=== PATIENT | male | born 1950 | race Caucasian/White ===

== ENCOUNTER 2018-11-04 14:47 | Day surgery (SDC) | payer MEDICARE ==
[2018-11-04] MEDS ORDERED: Glucagon,Human Recombinant 1 MG Vial IVPUSH ONE (14:49)
--- NOTE | 2018-11-04 14:49 | EDM.PDOC ---
ED HPI GENERAL MEDICAL PROBLEM - General Chief Complaint: ENT Problem Stated Complaint: DIFFICULTY SWALLOWING Time Seen by Provider: 11/04/18 14:48 Source of Information: Reports: Patient History Limitations: Reports: No Limitations - History of Present Illness INITIAL COMMENTS - FREE TEXT/NARRATIVE: HISTORY AND PHYSICAL: History of present illness: Patient is a 68-year-old male who presents to the emergency room today with complaints of an esophageal food bolus. He states that he has had a long- standing history of getting food stuck, typically with meat. He states he has had this multiple times previous but within 15-20 minutes his "sphincter will relax" and he is able to swallow the food. States he has not ever needed to have an EGD or dilatation as it has resolved on its own. This occurrence happened last evening while eating some dry steak. Has tried nitroglycerin pills (to relax esophagus/ not for chest pain) and soda without any relief. He denies any fever, chills, chest pain, shortness of breath or dyspnea. He denies any abdominal pain, nausea, vomiting, diarrhea or constipation. Prior to this he had felt well and had no complaints. Currently he has no difficulty breathing but is unable to swallow his saliva. He has a cup at the bedside that he is spitting into Review of systems: As per history of present illness and below otherwise all systems reviewed and negative. Past medical history: As per history of present illness and as reviewed below otherwise noncontributory. Surgical history: As per history of present illness and as reviewed below otherwise noncontributory. Social history: See social history for further information Family history: As per history of present illness and as reviewed below otherwise noncontributory. Physical exam: General: Well-developed and well-nourished 68 year-old male. Alert and oriented. Nontoxic appearing and in no acute distress. HEENT: Atraumatic, normocephalic, pupils equal and reactive bilaterally, negative for conjunctival pallor or scleral icterus, mucous membranes moist, TMs normal bilaterally, throat clear, neck supple, nontender, trachea midline. No drooling or trismus noted. No meningeal signs. No hot potato voice noted. Lungs: Clear to auscultation, breath sounds equal bilaterally, chest nontender. Heart: S1S2, regular rate and rhythm without overt murmur Abdomen: Soft, nondistended, nontender. Negative for masses or hepatosplenomegaly. Negative for costovertebral tenderness. Pelvis: Stable nontender. Genitourinary: Deferred. Rectal: Deferred. Skin: Intact, warm, dry. No lesions or rashes noted. Extremities: Atraumatic, moves all per self, negative for cords or calf pain. Neurovascular unremarkable. Neuro: Awake, alert, oriented. Cranial nerves II through XII unremarkable. Cerebellum unremarkable. Motor and sensory unremarkable throughout. Exam nonfocal. Notes: Glucagon IV was attempted with out success. Failed PO challenge. Dr. Ziegler was consulted on this patient. 1550: Dr Ziegler here to see patient. She will take this patient to OR for an EGD. Surgery staff and anesthesia here to see patient.. Patient is aware and agreeable to plan of care. Vital signs remain stable. Diagnostics: CBC, CMP, Chest Xray Therapeutics: Glucogon IV Impression: Esophageal foreign body Plan: Patient to the OR with Dr Ziegler for EGD Definitive disposition and diagnosis as appropriate pending reevaluation and review of above. - Related Data Allergies Allergy/AdvReac Type Severity Reaction Status Date / Time No Known Allergies Allergy Verified 11/04/18 14:57 Home Meds: Home Meds Fish Oil/[place]-3 Fatty Acids [Fish Oil] 2 tbsp PO DAILY 11/04/18 [History] Pantoprazole [ProTONIX] 40 mg PO DAILY #30 tab.cr 11/04/18 [Rx] ED ROS ENT - Review of Systems Review Of Systems: ROS reveals no pertinent complaints other than HPI. ED EXAM, ENT - Physical Exam Exam: See Below (See dictation) Course - Vital Signs Last Recorded V/S: Last Vital Signs Temp 98.4 F 11/04/18 18:43 Pulse 60 11/04/18 19:47 Resp 20 11/04/18 19:47 BP 146/86 H 11/04/18 19:47 Pulse Ox 97 11/04/18 19:14 - Orders/Labs/Meds Orders: Active Orders 24 hr Category Date Time Status Patient Status [ADT] Routine ADT 11/04/18 18:45 Active Antiembolic Devices [RC] PER UNIT ROUTINE Care 11/04/18 18:46 Active EKG Documentation Completion [RC] STAT Care 11/04/18 16:30 Active Ready for Discharge [RC] PER UNIT ROUTINE Care 11/04/18 18:51 Active Verify Patient Consent Obtain [RC] ASDIRECTED Care 11/04/18 18:45 Active Clear Liquid Diet [DIET] Diet 11/05/18 Breakfast Active Pantoprazole [ProTONIX] Med 11/04/18 19:00 Active 40 mg PO DAILY Sodium Chloride 0.9% [Normal Saline] 1,000 ml Med 11/04/18 15:06 Active IV STAT Sodium Chloride 0.9% [Saline Flush] Med 11/04/18 18:45 Active 10 ml FLUSH ASDIRECTED PRN Sodium Chloride 0.9% [Saline Flush] Med 11/04/18 18:45 Active 2.5 ml FLUSH ASDIRECTED PRN Peripheral IV Insertion Adult [OM.PC] Routine Oth 11/04/18 18:45 Ordered Sequential Compression Device [OM.PC] Routine Oth 11/04/18 18:45 Ordered Resuscitation Status Routine Resus Stat 11/04/18 18:45 Ordered Medication Orders Sodium Chloride (Normal Saline) 1,000 mls @ 150 mls/hr IV STAT ONE Stop: 11/04/18 21:45 Last Admin: 11/04/18 15:16 Dose: 150 mls/hr Pantoprazole Sodium (Protonix) 40 mg PO DAILY CYRIL Sodium Chloride (Saline Flush) 10 ml FLUSH ASDIRECTED PRN PRN Reason: Keep Vein Open Sodium Chloride (Saline Flush) 2.5 ml FLUSH ASDIRECTED PRN PRN Reason: Keep Vein Open Labs: Laboratory Tests 11/04/18 11/04/18 11/04/18 Range/Units 15:00 15:00 15:23 WBC 4.02 (4.0-11.0) K/uL RBC 5.32 (4.50-5.90) M/uL Hgb 13.0 (13.0-17.0) g/dL Hct 40.4 (38.0-50.0) % MCV 75.9 L (80.0-98.0) fL MCH 24.4 L (27.0-32.0) pg MCHC 32.2 (31.0-37.0) g/dL RDW Std Deviation 50.8 (28.0-62.0) fl RDW Coeff of John 18 H (11.0-15.0) % Plt Count 233 (150-400) K/uL MPV 9.70 (7.40-12.00) fL Neut % (Auto) 57.0 (48.0-80.0) % Lymph % (Auto) 30.3 (16.0-40.0) % [place] % (Auto) 10.2 (0.0-15.0) % Eos % (Auto) 2.0 (0.0-7.0) % Baso % (Auto) 0.5 (0.0-1.5) % Neut # (Auto) 2.3 (1.4-5.7) K/uL Lymph # (Auto) 1.2 (0.6-2.4) K/uL Dickinson # (Auto) 0.4 (0.0-0.8) K/uL Eos # (Auto) 0.1 (0.0-0.7) K/uL Baso # (Auto) 0.0 (0.0-0.1) K/uL Nucleated RBC % 0.0 /100WBC Nucleated RBCs # 0 K/uL Sodium 141 (136-148) mmol/L Potassium 4.0 (3.5-5.1) mmol/L Chloride 106 (98-107) mmol/L Carbon Dioxide 25.6 (21.0-32.0) mmol/L BUN 12 (7.0-18.0) mg/dL Creatinine 1.1 (0.8-1.3) mg/dL Est Cr Clr Drug Dosing 72.51 mL/min Estimated GFR (MDRD) > 60.0 ml/min Glucose 99 (74-106) mg/dL Calcium 9.6 (8.5-10.1) mg/dL Total Bilirubin 0.4 (0.2-1.0) mg/dL AST 25 (15-37) IU/L ALT 25 (14-63) IU/L Alkaline Phosphatase 74 (46-116) U/L Total Protein 7.5 (6.4-8.2) g/dL Albumin 3.8 (3.4-5.0) g/dL Globulin 3.7 (2.6-4.0) g/dL Albumin/Globulin Ratio 1.0 (0.9-1.6) H. pylori IgG Antibody NEGATIVE (NEG) Meds: Medications Generic Name Dose Route Start Last Admin Trade Name Freq PRN Reason Stop Dose Admin Sodium Chloride 1,000 mls @ 150 mls/hr 11/04/18 15:06 11/04/18 15:16 Normal Saline IV 11/04/18 21:45 150 mls/hr STAT ONE Administration Pantoprazole Sodium 40 mg 11/04/18 19:00 Protonix PO DAILY CYRIL Sodium Chloride 10 ml 11/04/18 18:45 Saline Flush FLUSH ASDIRECTED PRN Keep Vein Open Sodium Chloride 2.5 ml 11/04/18 18:45 Saline Flush FLUSH ASDIRECTED PRN Keep Vein Open Discontinued Medications Generic Name Dose Route Start Last Admin Trade Name Louisq PRN Reason Stop Dose Admin Fentanyl Confirm 11/04/18 18:06 Sublimaze Administered 11/04/18 18:07 Dose 200 mcg .ROUTE .STK-MED ONE Glucagon 1 mg 11/04/18 14:49 11/04/18 15:16 Glucagen IVPUSH 11/04/18 14:50 1 mg ONETIME ONE Administration Lidocaine Confirm 11/04/18 18:06 Xylocaine-Mpf 2% Administered 11/04/18 18:07 Dose 5 ml .ROUTE .STK-MED ONE Midazolam HCl Confirm 11/04/18 18:06 Versed 1 Mg/Ml Administered 11/04/18 18:07 Dose 2 mg .ROUTE .STK-MED ONE Ondansetron HCl Confirm 11/04/18 18:06 Zofran Administered 11/04/18 18:07 Dose 4 mg .ROUTE .STK-MED ONE Propofol Confirm 11/04/18 18:06 Diprivan 20 Ml Administered 11/04/18 18:07 Dose 200 mg .ROUTE .STK-MED ONE Rocuronium [place] Confirm 11/04/18 18:06 Zemuron Administered 11/04/18 18:07 Dose 100 mg .ROUTE .STK-MED ONE Succinylcholine Chloride Confirm 11/04/18 18:06 Quelicin Administered 11/04/18 18:07 Dose 200 mg .ROUTE .STK-MED ONE Departure - Departure Time of Disposition: 21:20 Disposition: Still A Patient 30 Clinical Impression: Esophageal foreign body Qualifiers: Encounter type: initial encounter Qualified Code(s): T18.108A - Unspecified foreign body in esophagus causing other injury, initial encounter - Discharge Information - My Orders Last 24 Hours: My Active Orders 11/04/18 15:06 Sodium Chloride 0.9% [Normal Saline] 1,000 ml IV STAT 11/04/18 16:30 EKG Documentation Completion [RC] STAT - Assessment/Plan Last 24 Hours: My Active Orders 11/04/18 15:06 Sodium Chloride 0.9% [Normal Saline] 1,000 ml IV STAT 11/04/18 16:30 EKG Documentation Completion [RC] STAT
[2018-11-04] MEDS ORDERED: Sodium Chloride 0.9% 1,000 ML IV ONE (15:06)
[2018-11-04 15:54] LABS: CHLORIDE,CL 106 mmol/L (98-107); SODIUM,NA 141 mmol/L (136-148)
--- NOTE | 2018-11-04 17:54 | PCM.HP ---
H&P History of Present Illness - General Date of Service: 11/04/18 Source of Information: Patient History Limitations: Reports: No Limitations - History of Present Illness Initial Comments - Free Text/Narative: Patient is a 68 year old male with a long standing history of dysphagia. It is made worse with eating meats. He was eating a steak last night when he felt a piece get stuck. He went to bed thinking it would resolve on its own but now 24 hours later it hasnt. He is spitting up saliva. He denies any chest pain. He states he had an EGD many years ago that showed esophagitis. He takes homeopathic meds for his stomach. - Related Data Allergies/Adverse Reactions: Allergies Allergy/AdvReac Type Severity Reaction Status Date / Time No Known Allergies Allergy Verified 11/04/18 14:57 Home Medications: Home Meds Fish Oil/[place]-3 Fatty Acids [Fish Oil] 2 tbsp PO DAILY 11/04/18 [History] Past Medical History - Past Surgical History Cardiovascular Surgical History: Reports: Cardiac Ablation, Coronary Artery Stent GI Surgical History: Reports: Appendectomy, Hernia Repair/Other Social & Family History - Family History Cardiac: Reports: CAD - Tobacco Use Smoking Status *Q: Never Smoker Second Hand Smoke Exposure: No - Caffeine Use Caffeine Use: Reports: None - Recreational Drug Use Recreational Drug Use: No H&P Review of Systems - Review of Systems: Review Of Systems: ROS reveals no pertinent complaints other than HPI. Exam - Exam Exam: See Below - Vital Signs Vital Signs: Last Vital Signs Temp 36.3 C 11/04/18 14:55 Pulse 64 11/04/18 14:55 Resp 16 11/04/18 14:55 BP 193/98 H 11/04/18 14:55 Pulse Ox 99 11/04/18 14:55 Weight: 92.986 kg - Exam General: Alert, Oriented, Cooperative HEENT: Conjunctiva Clear, Mucosa Moist & [place], Posterior Pharynx Clear Neck: Supple, Trachea Midline Lungs: Clear to Auscultation, Normal Respiratory Effort Cardiovascular: Regular Rate, Regular Rhythm GI/Abdominal Exam: Soft, Non-Tender, No Distention, No Mass Extremities: Normal Inspection, Normal Range of Motion - Patient Data Lab Results Last 24 hrs: Laboratory Results - last 24 hr 11/04/18 11/04/18 Range/Units 15:00 15:00 WBC 4.02 (4.0-11.0) K/uL RBC 5.32 (4.50-5.90) M/uL Hgb 13.0 (13.0-17.0) g/dL Hct 40.4 (38.0-50.0) % MCV 75.9 L (80.0-98.0) fL MCH 24.4 L (27.0-32.0) pg MCHC 32.2 (31.0-37.0) g/dL RDW Std Deviation 50.8 (28.0-62.0) fl RDW Coeff of John 18 H (11.0-15.0) % Plt Count 233 (150-400) K/uL MPV 9.70 (7.40-12.00) fL Neut % (Auto) 57.0 (48.0-80.0) % Lymph % (Auto) 30.3 (16.0-40.0) % [place] % (Auto) 10.2 (0.0-15.0) % Eos % (Auto) 2.0 (0.0-7.0) % Baso % (Auto) 0.5 (0.0-1.5) % Neut # (Auto) 2.3 (1.4-5.7) K/uL Lymph # (Auto) 1.2 (0.6-2.4) K/uL [place] # (Auto) 0.4 (0.0-0.8) K/uL Eos # (Auto) 0.1 (0.0-0.7) K/uL Baso # (Auto) 0.0 (0.0-0.1) K/uL Nucleated RBC % 0.0 /100WBC Nucleated RBCs # 0 K/uL Sodium 141 (136-148) mmol/L Potassium 4.0 (3.5-5.1) mmol/L Chloride 106 (98-107) mmol/L Carbon Dioxide 25.6 (21.0-32.0) mmol/L BUN 12 (7.0-18.0) mg/dL Creatinine 1.1 (0.8-1.3) mg/dL Est Cr Clr Drug Dosing 72.51 mL/min Estimated GFR (MDRD) > 60.0 ml/min Glucose 99 (74-106) mg/dL Calcium 9.6 (8.5-10.1) mg/dL Total Bilirubin 0.4 (0.2-1.0) mg/dL AST 25 (15-37) IU/L ALT 25 (14-63) IU/L Alkaline Phosphatase 74 (46-116) U/L Total Protein 7.5 (6.4-8.2) g/dL Albumin 3.8 (3.4-5.0) g/dL Globulin 3.7 (2.6-4.0) g/dL Albumin/Globulin Ratio 1.0 (0.9-1.6) Result Diagrams: 11/04/18 15:00 11/04/18 15:00 - Problem List (1) Esophageal obstruction due to food impaction SNOMED Code(s): 305245965 ICD Code: K22.2 - ESOPHAGEAL OBSTRUCTION; T18.128A - FOOD IN ESOPHAGUS CAUSING OTHER INJURY, INITIAL ENCOUNTER Status: Acute Current Visit: Yes Problem List Initiated/Reviewed/Updated: Yes Orders Last 24hrs: Active Orders 24 hr Category Date Time Status EKG Documentation Completion [RC] STAT Care 11/04/18 16:30 Active Sodium Chloride 0.9% [Normal Saline] 1,000 ml Med 11/04/18 15:06 Active IV STAT Medication Orders Sodium Chloride (Normal Saline) 1,000 mls @ 150 mls/hr IV STAT ONE Stop: 11/04/18 21:45 Last Admin: 11/04/18 15:16 Dose: 150 mls/hr Assessment/Plan Comment:: Patient has an esophageal food obstruction. He was given glucagon with no improvement. He will need to go to the OR for disimpaction. We discussed the procedure, expected perioperative course, and the risks including bleeding, infection or perforation. He verbalized understanding and wishes to proceed.
--- NOTE | 2018-11-04 17:57 | PCM.PREANE ---
Preanesthetic Assessment - Anesthesia/Transfusion/Family Hx Anesthesia History: Prior Anesthesia Without Reaction Family History of Anesthesia Reaction: No Transfusion History: No Prior Transfusion(s) - Review of Systems General: No Symptoms Pulmonary: No Symptoms Cardiovascular: No Symptoms Gastrointestinal: No Symptoms Neurological: No Symptoms Other: Reports: None - Physical Assessment NPO Status Date: 11/04/18 NPO Status Time: 16:00 O2 Sat by Pulse Oximetry: 99 Respiratory Rate: 16 Vital Signs: Last Vital Signs Temp 97.4 F 11/04/18 14:55 Pulse 64 11/04/18 14:55 Resp 16 11/04/18 14:55 BP 193/98 H 11/04/18 14:55 Pulse Ox 99 11/04/18 14:55 Height: 6 ft Weight: 92.986 kg ASA Class: 2E Mental Status: Alert & Oriented x3 Airway Class: Mallampati = 2 Dentition: Reports: Normal Dentition Thyro-Mental Finger Breadths: 3 Mouth Opening Finger Breadths: 3 ROM/Head Extension: Full Lungs: Clear to Auscultation, Normal Respiratory Effort Cardiovascular: Regular Rate, Regular Rhythm - Lab Values: Laboratory Last Values WBC 4.02 K/uL (4.0-11.0) 11/04/18 15:00 RBC 5.32 M/uL (4.50-5.90) 11/04/18 15:00 Hgb 13.0 g/dL (13.0-17.0) 11/04/18 15:00 Hct 40.4 % (38.0-50.0) 11/04/18 15:00 MCV 75.9 fL (80.0-98.0) L 11/04/18 15:00 MCH 24.4 pg (27.0-32.0) L 11/04/18 15:00 MCHC 32.2 g/dL (31.0-37.0) 11/04/18 15:00 RDW Std Deviation 50.8 fl (28.0-62.0) 11/04/18 15:00 RDW Coeff of John 18 % (11.0-15.0) H 11/04/18 15:00 Plt Count 233 K/uL (150-400) 11/04/18 15:00 MPV 9.70 fL (7.40-12.00) 11/04/18 15:00 Neut % (Auto) 57.0 % (48.0-80.0) 11/04/18 15:00 Lymph % (Auto) 30.3 % (16.0-40.0) 11/04/18 15:00 [place] % (Auto) 10.2 % (0.0-15.0) 11/04/18 15:00 Eos % (Auto) 2.0 % (0.0-7.0) 11/04/18 15:00 Baso % (Auto) 0.5 % (0.0-1.5) 11/04/18 15:00 Neut # (Auto) 2.3 K/uL (1.4-5.7) 11/04/18 15:00 Lymph # (Auto) 1.2 K/uL (0.6-2.4) 11/04/18 15:00 [place] # (Auto) 0.4 K/uL (0.0-0.8) 11/04/18 15:00 Eos # (Auto) 0.1 K/uL (0.0-0.7) 11/04/18 15:00 Baso # (Auto) 0.0 K/uL (0.0-0.1) 11/04/18 15:00 Nucleated RBC % 0.0 /100WBC 11/04/18 15:00 Nucleated RBCs # 0 K/uL 11/04/18 15:00 Sodium 141 mmol/L (136-148) 11/04/18 15:00 Potassium 4.0 mmol/L (3.5-5.1) 11/04/18 15:00 Chloride 106 mmol/L (98-107) 11/04/18 15:00 Carbon Dioxide 25.6 mmol/L (21.0-32.0) 11/04/18 15:00 BUN 12 mg/dL (7.0-18.0) 11/04/18 15:00 Creatinine 1.1 mg/dL (0.8-1.3) 11/04/18 15:00 Est Cr Clr Drug Dosing 72.51 mL/min 11/04/18 15:00 Estimated GFR (MDRD) > 60.0 ml/min 11/04/18 15:00 Glucose 99 mg/dL (74-106) 11/04/18 15:00 Calcium 9.6 mg/dL (8.5-10.1) 11/04/18 15:00 Total Bilirubin 0.4 mg/dL (0.2-1.0) 11/04/18 15:00 AST 25 IU/L (15-37) 11/04/18 15:00 ALT 25 IU/L (14-63) 11/04/18 15:00 Alkaline Phosphatase 74 U/L (46-116) 11/04/18 15:00 Total Protein 7.5 g/dL (6.4-8.2) 11/04/18 15:00 Albumin 3.8 g/dL (3.4-5.0) 11/04/18 15:00 Globulin 3.7 g/dL (2.6-4.0) 11/04/18 15:00 Albumin/Globulin Ratio 1.0 (0.9-1.6) 11/04/18 15:00 - Allergies Allergies/Adverse Reactions: Allergies Allergy/AdvReac Type Severity Reaction Status Date / Time No Known Allergies Allergy Verified 11/04/18 14:57 - Acknowledgements Anesthesia Type Planned: General Anesthesia (With RSI) Pt an Appropriate Candidate for the Planned Anesthesia: Yes Alternatives and Risks of Anesthesia Discussed w Pt/Guardian: Yes Pt/Guardian Understands and Agrees with Anesthesia Plan: Yes PreAnesthesia Questionnaire HEENT History: Reports: Other (See Below) (Glasses) Cardiovascular History: Reports: Other (See Below) (Heart stents x 4 2013, WPW with A-fib ablation 2013) Respiratory History: Reports: None Gastrointestinal History: Reports: None Genitourinary History: Reports: None Musculoskeletal History: Reports: None Neurological History: Reports: None Psychiatric History: Reports: None Endocrine/Metabolic History: Reports: None Hematologic History: Reports: None Immunologic History: Reports: None Oncologic (Cancer) History: Reports: None Dermatologic History: Reports: None - Infectious Disease History Infectious Disease History: Reports: None - Past Surgical History Cardiovascular Surgical History: Reports: Cardiac Ablation (2014 for WPW), Coronary Artery Stent (x4 2013) GI Surgical History: Reports: Appendectomy, Hernia Repair/Other - SUBSTANCE USE Smoking Status *Q: Never Smoker Second Hand Smoke Exposure: No Recreational Drug Use History: No - HOME MEDS Home Medications: Home Meds Fish Oil/[place]-3 Fatty Acids [Fish Oil] 2 tbsp PO DAILY 11/04/18 [History] - CURRENT (IN HOUSE) MEDS Current Meds: Current Medications Sodium Chloride (Normal Saline) 1,000 mls @ 150 mls/hr IV STAT ONE Stop: 11/04/18 21:45 Last Admin: 11/04/18 15:16 Dose: 150 mls/hr Discontinued Medications Glucagon (Glucagen) 1 mg IVPUSH ONETIME ONE Stop: 11/04/18 14:50 Last Admin: 11/04/18 15:16 Dose: 1 mg
[2018-11-04] MEDS ORDERED: Lidocaine 2% 5 ML SDV ONE (18:06)
[2018-11-04] MEDS ORDERED: Succinylcholine 200 MG/10 ML MDV ONE (18:06)
[2018-11-04] MEDS ORDERED: fentaNYL 100 MCG/2 ML SDV ONE (18:06)
[2018-11-04] MEDS ORDERED: Midazolam 1 MG/ML 2 ML SDV ONE (18:06)
[2018-11-04] MEDS ORDERED: Rocuronium 10 MG/ML 10 ML Syringe ONE (18:06)
[2018-11-04] MEDS ORDERED: Propofol 200 MG/20 ML SDV ONE (18:06)
[2018-11-04] MEDS ORDERED: Ondansetron 4 MG/2 ML SDV ONE (18:06)
[2018-11-04] MEDS ORDERED: Sodium Chloride 0.9% 10 ML Syringe FLUSH PRN (18:45)
[2018-11-04] MEDS ORDERED: Sodium Chloride 0.9% 2.5 ML Syringe FLUSH PRN (18:45)
--- NOTE | 2018-11-04 18:54 | PCM.OPNOTE ---
- General Post-Op/Procedure Note Date of Surgery/Procedure: 11/04/18 Operative Procedure(s): EGD with food disimpaction Findings: Steak in esophagus at 25 cm. Severe ulcerative esophagitis Pre Op Diagnosis: Food impaction in esophagus Post-Op Diagnosis: Food impaction in esophagus, severe esophagitis Anesthesia Technique: General ET Tube Primary Surgeon: Clara Ziegler Condition: Good
[2018-11-04] MEDS ORDERED: Pantoprazole 40 MG Tab.CR PO SCH (19:00)
--- NOTE | 2018-11-04 19:09 | OR ---
SURGEON: TAMARA ROSADO MD DATE OF PROCEDURE: 11/04/2018 PREOPERATIVE DIAGNOSIS: Esophageal obstruction secondary to food bolus. POSTOPERATIVE DIAGNOSES: 1. Esophageal obstruction secondary to food bolus. 2. Severe esophagitis. PROCEDURE PERFORMED: Diagnostic EGD with food disimpaction. ANESTHESIA: General endotracheal anesthesia. FLUIDS: See Anesthesia record. INSTRUMENT USED: Olympus endoscope. EXTENT OF EXAM: To the second portion of duodenum. FINDINGS: Impacted food bolus at 25 cm. Severe erosive esophagitis of the distal esophagus. COMPLICATIONS: None. INDICATIONS: The patient is a 68-year-old male with a longstanding history of dysphagia. He was eating steak last night when the piece of food became impacted. He has tried multiple [id number] remedies before he presented today to the emergency room. He was given glucagon with no relief in the obstruction. I visited him in the emergency room. I explained the need for a diagnostic EGD with food disimpaction. We discussed the procedure, expected perioperative course, and risks including bleeding, infection, or damage to surrounding structures including perforation. The patient verbalized understanding and wishes to proceed. PROCEDURE IN DETAIL: The patient was brought into the endoscopy suite and placed in supine position. A time-out was completed verifying the patient's name, age, date of , allergies, and procedure to be performed. General endotracheal intubation was performed. A bite block was placed in the patient's mouth. A well-lubricated endoscope was placed into the mouth and advanced under direct visualization into the esophagus. At 20 cm, I encountered an impacted piece of meat. Using suction, I was able to remove part of the food bolus. I then used a tri prong grasper to grasp the food and slowly pulled it out. The entire piece was removed. The scope was then advanced again into the esophagus. At 25 cm, the patient had some superficial trauma to the esophageal mucosa where the impaction had occurred. The scope was advanced under direct visualization to the second portion of the duodenum which appeared normal. The scope was then fully withdrawn while examining the mucosa of the upper GI tract. The duodenal mucosa appeared normal. The scope was brought into the stomach and a photograph taken of the pylorus and GE junction. Both appeared normal. There was no evidence of gross ulceration or inflammation in the stomach. The scope was brought into the distal esophagus. The patient had severe esophagitis with superficial ulceration. This was confirmed with narrow band imaging. Multiple photographs were taken. The scope was then removed and the procedure terminated. The patient tolerated the procedure well and was taken to PACU in stable condition. ENDOSCOPIC DIAGNOSES: 1. Esophageal obstruction secondary to food bolus. 2. Severe esophagitis. RECOMMENDATIONS: I will start the patient on 40 mg of pantoprazole daily for 2 months. I will visit with him in clinic in 2 weeks to discuss further treatment plans. He will be on a clear liquid diet for the next 24 hours and advance to a soft diet for the next week. As long as he remains stable in PACU, he should be able to be discharged home safely. ANTONIO BENITES /[id number] JUNG
--- NOTE | 2018-11-04 19:14 | PCM.POSTAN ---
POST ANESTHESIA ASSESSMENT - MENTAL STATUS Mental Status: Alert, Oriented - VITAL SIGNS Pulse Rate: 60 SaO2: 97 Resp Rate: 20 Blood Pressure: 146/86 - RESPIRATORY Respiratory Status: Respiratory Rate WNL, Airway Patent, O2 Saturation Stable - CARDIOVASCULAR CV Status: Pulse Rate WNL, Blood Pressure Stable - GASTROINTESTINAL GI Status: No Symptoms - PAIN Pain Score: 0 - POST OP HYDRATION Hydration Status: Adequate & Stable
--- NOTE | 2018-11-04 19:47 | PCM48HPAN ---
Post Anesthesia Note - EVALUATION WITHIN 48HRS OF ANESTHETIC Vital Signs in Normal Range: Yes Patient Participated in Evaluation: Yes Respiratory Function Stable: Yes Airway Patent: Yes Cardiovascular Function Stable: Yes Hydration Status Stable: Yes Pain Control Satisfactory: Yes Nausea and Vomiting Control Satisfactory: Yes Mental Status Recovered: Yes Pulse Rate: 60 Resp Rate: 20 Blood Pressure: 146/86
[2018-11-05 01:07] VITALS: BP 133/77
== END 2018-11-04 21:45 | disposition home or self-care (01) ==
LOC: MW.ED 14:47 → MW.SDS 17:21 → MW.MS 18:59 → MW.SDS 21:45
PROVIDERS: ATTEND Surgery
DX: T18.128A Food in esophagus causing other injury, initial encounter (principal); K20.9 Esophagitis, unspecified
CPT/HCPCS: 36415; 43247; 80053; 85025; 86677; 93005; 96361; 96374; 99284; A9270; J0330; J1610; J2001; J2250; J2405; J2704; J3010; J7040

== ENCOUNTER 2021-06-19 02:09 | Emergency (ER) | payer MEDICARE ==
[2021-06-19] MEDS ORDERED: Ondansetron 4 MG/2 ML SDV IVPUSH ONE (02:46)
[2021-06-19] MEDS ORDERED: Sodium Chloride 0.9% 1,000 ML IV ONE ×2 (02:46→03:37)
[2021-06-19] MEDS ORDERED: Sodium Chloride 0.9% 10 ML Syringe FLUSH PRN (02:46)
[2021-06-19] MEDS ORDERED: Ketorolac 15 MG/ML SDV IVPUSH ONE (02:46)
[2021-06-19] MEDS ORDERED: Sodium Chloride 0.9% 2.5 ML Syringe FLUSH PRN (02:46)
[2021-06-19 03:29] LABS: BLOOD UREA NITROGEN,BUN 24 mg/dL (7.0-18.0); CHLORIDE,CL 99 mmol/L (98-107); GLUCOSE RANDOM 108 mg/dL (74-106); LIPASE 174 U/L (73-393); POTASSIUM,K 3.7 mmol/L (3.5-5.1); SODIUM,NA 138 mmol/L (136-148)
--- NOTE | 2021-06-19 04:44 | EDM.PDOC ---
ED HPI GENERAL MEDICAL PROBLEM - General Chief Complaint: Gastrointestinal Problem Stated Complaint: DEHYDRATION AND WEAKNESS Time Seen by Provider: 06/19/21 02:37 - History of Present Illness INITIAL COMMENTS - FREE TEXT/NARRATIVE: HISTORY AND PHYSICAL: History of present illness: This is a 71-year-old gentleman with no history of hypertension, diabetes, liver, lung, kidney problems who presents to the ER today secondary to feeling nauseous x1 day with pain to his left hip area. Patient denies any recent fevers, shakes, chills. Patient denies any vomiting or diarrhea but has been feeling strongly nauseous. Patient denies any dysuria, frequency, urgency, hematuria. Patient has any melena or bright red blood per rectum. Patient reports he has been able to tolerate p.o. solids and liquids but significantly decreased in usual over the last 2 days. Patient denies any loss of taste or smell. Patient denies any pain to his left flank or abdominal pain. Patient does note that incidentally he felt the the skin of his abdomen was having pain yesterday but today was pain-free. reports that over the last 2 days she has been giving him ibuprofen for his hip pain that started 2 days ago and the nausea started yesterday. Review of systems: As per history of present illness and below otherwise all systems reviewed and negative. Past medical history: As per history of present illness and as reviewed below otherwise noncontributory. Surgical history: As per history of present illness and as reviewed below otherwise noncontributory. Social history: No reported history of drug abuse. Family history: As per history of present illness and as reviewed below otherwise noncontributory. Physical exam: This patient was seen and evaluated during the 2019 SARS-CoV-2 novel coronavirus pandemic period. Community viral transmission is ongoing at time of this encounter and the emergency department is operating under pandemic response procedures. Constitutional: Patient is oriented to person, place, and time. Appears well- developed and well-nourished. No distress. HEENT: Moist mucous membranes Head: Normocephalic and atraumatic Eyes: Right eye exhibits no discharge. Left eye exhibits no discharge. No scleral icterus Neck: Normal range of motion. No tracheal deviation present. Cardiovascular: Normal rate and regular rhythm. Pulmonary: Effort normal, no respiratory distress. Abd: Soft, nondistended, no rebound/guarding, no psoas or obturator signs, no tenderness at Mcberney's point, no Thacker's sign. Pt does not present with an exam that would be consistent with an acute surgical abdomen at this time nontender to palpation. Patient does have some tenderness palpation to his left hip area and lower back. Musculoskeletal: Normal range of motion Neurologic: Alert and oriented to person, place and time. Skin: [place], warm and dry. Psychiatric: Normal mood and affect. Behavior is normal. Judgment and thought content normal. Nursing note and vital signs have been reviewed Diagnostics: CT scan of the abdomen pelvis: Patient refused and wants to see how he feels after the hydration CBC, CMP within normal limits EK06/19/2021 3:04 AM As interpreted by ER physician: Jacoby: Nonspecific ST-T wave abnormalities Normal axis No evidence of ST elevation [place] Normal sinus rhythm heart rate of 63 Therapeutics: NSS x2 L Zofran 4 mg IV Toradol 15 mg IV Assessment and plan: This is a 71-year-old gentleman who presents ER today secondary to nausea that he believes is secondary to taking too much ibuprofen the last couple days secondary to pain to his left hip area. Patient's labs are all within normal limits. Patient's EKG was unremarkable. Patient was given Toradol and Zofran in the ED as well as 2 L of NSS. After the first liter the patient reports that he feels 100% improved. Patient was given a second liters that we can obtain a urine from him to rule out urinary tract infection or hematuria. Patient was reevaluated after second liter of NSS and he appears much better and reports that he has no symptoms at this time and would like to go home. Patient is amenable to awaiting for urinalysis to rule out any other pathology that could be causing his left hip pain and nausea. Patient reevaluated at 5:25 AM. Patient reports that he feels much improved and would like to go home. Patient's urinalysis unremarkable. Patient will be discharged home with a prescription for Zofran and instructions to follow-up with his doctor in the next 1 to 2 days. Reassessment at the time of disposition demonstrates that the patient is in no acute distress. The patient has remained stable throughout the entire ED visit and is without objective evidence for acute process requiring urgent intervention or hospitalization. The patient is stable for discharge, counseling is provided as documented above, discussed symptomatic treatment and specific conditions for return. I have spoken with the patient/caregiver and discussed todays findings, in addition to providing specific details for the plan of care. Questions are answered and there is agreement with the plan. Definitive disposition and diagnosis as appropriate pending reevaluation and review of above. lower back Pain Score (Numeric/FACES): 6 - Related Data Allergies Allergy/AdvReac Type Severity Reaction Status Date / Time No Known Allergies Allergy Verified 06/19/21 02:26 Home Meds: Home Meds Levothyroxine [Synthroid] 50 mcg PO ACBREAKFAST 06/19/21 [History] Ondansetron [Zofran ODT] 4 mg PO Q6H PRN #12 tab.dis 06/19/21 [Rx] Past Medical History HEENT History: Reports: None, Other (See Below) Cardiovascular History: Reports: Stents, Other (See Below) Other Cardiovascular History: Angina Respiratory History: Reports: None Gastrointestinal History: Reports: None Genitourinary History: Reports: None Musculoskeletal History: Reports: None Neurological History: Reports: None Psychiatric History: Reports: None Endocrine/Metabolic History: Reports: Hypothyroidism Insulin Pump Model and Pattern Finisher: None Hematologic History: Reports: None Immunologic History: Reports: None Oncologic (Cancer) History: Reports: None Dermatologic History: Reports: None - Infectious Disease History Infectious Disease History: Reports: None - Past Surgical History Cardiovascular Surgical History: Reports: Cardiac Ablation, Coronary Artery Stent GI Surgical History: Reports: Appendectomy, Hernia Repair/Other Social & Family History - Family History Cardiac: Reports: CAD - Caffeine Use Caffeine Use: Reports: None - Recreational Drug Use Recreational Drug Use: No ED ROS GENERAL - Review of Systems Review Of Systems: See Below ED EXAM, GENERAL - Physical Exam Exam: See Below Course - Vital Signs Last Recorded V/S: Last Vital Signs Temp 97.8 F 06/19/21 02:20 Pulse 67 06/19/21 02:20 Resp 18 06/19/21 02:20 BP 138/81 06/19/21 02:20 Pulse Ox 97 06/19/21 02:20 - Orders/Labs/Meds Orders: Active Orders 24 hr Category Date Time Status EKG Documentation Completion [RC] AM Care 06/19/21 02:46 Active UA W/MICROSCOPIC [URIN] Stat Lab 06/19/21 05:00 Results Sodium Chloride 0.9% [Saline Flush] Med 06/19/21 02:46 Active 10 ml FLUSH ASDIRECTED PRN Sodium Chloride 0.9% [Saline Flush] Med 06/19/21 02:46 Active 2.5 ml FLUSH ASDIRECTED PRN Saline Lock Insert [OM.PC] Stat Oth 06/19/21 02:46 Ordered Medication Orders Sodium Chloride (Sodium Chloride 0.9% 10 Ml Syringe) 10 ml FLUSH ASDIRECTED PRN PRN Reason: Keep Vein Open Sodium Chloride (Sodium Chloride 0.9% 2.5 Ml Syringe) 2.5 ml FLUSH ASDIRECTED PRN PRN Reason: Keep Vein Open Labs: Laboratory Tests 06/19/21 06/19/21 06/19/21 Range/Units 03:00 03:00 05:00 WBC 2.70 L (4.0-11.0) K/uL RBC 5.42 (4.50-5.90) M/uL Hgb 15.6 (13.0-17.0) g/dL Hct 45.1 (38.0-50.0) % MCV 83.2 (80.0-98.0) fL MCH 28.8 (27.0-32.0) pg MCHC 34.6 (31.0-37.0) g/dL RDW Std Deviation 46.8 (28.0-62.0) fl RDW Coeff of John 15 (11.0-15.0) % Plt Count 103 L (150-400) K/uL MPV 10.30 (7.40-12.00) fL Neut % (Auto) 77.4 (48.0-80.0) % Lymph % (Auto) 15.2 L (16.0-40.0) % [place] % (Auto) 7.4 (0.0-15.0) % Eos % (Auto) 0.0 (0.0-7.0) % Baso % (Auto) 0.0 (0.0-1.5) % Neut # (Auto) 2.1 (1.4-5.7) K/uL Lymph # (Auto) 0.4 L (0.6-2.4) K/uL [place] # (Auto) 0.2 (0.0-0.8) K/uL Eos # (Auto) 0.0 (0.0-0.7) K/uL Baso # (Auto) 0.0 (0.0-0.1) K/uL Nucleated RBC % 0.0 /100WBC Nucleated RBCs # 0 K/uL Sodium 138 (136-148) mmol/L Potassium 3.7 (3.5-5.1) mmol/L Chloride 99 (98-107) mmol/L Carbon Dioxide 27.0 (21.0-32.0) mmol/L BUN 24 H (7.0-18.0) mg/dL Creatinine 1.3 (0.8-1.3) mg/dL Est Cr Clr Drug Dosing 58.86 mL/min Estimated GFR (MDRD) 54.7 ml/min Glucose 108 H (74-106) mg/dL Calcium 7.9 L (8.5-10.1) mg/dL Total Bilirubin 0.5 (0.2-1.0) mg/dL AST 29 (15-37) IU/L ALT 27 (14-63) IU/L Alkaline Phosphatase 55 (46-116) U/L Troponin I < 0.050 (0.000-0.056) ng/mL Total Protein 7.0 (6.4-8.2) g/dL Albumin 3.1 L (3.4-5.0) g/dL Globulin 3.9 (2.6-4.0) g/dL Albumin/Globulin Ratio 0.8 L (0.9-1.6) Lipase 174 (73-393) U/L Urine Color YELLOW Urine Appearance CLEAR Urine pH 6.0 (5.0-8.0) Ur Specific [place] >= 1.030 (1.001-1.035) Urine Protein TRACE H (NEGATIVE) mg/dL Urine Glucose (UA) NEGATIVE (NEGATIVE) mg/dL Urine Ketones 40 H (NEGATIVE) mg/dL Urine Occult Blood NEGATIVE (NEGATIVE) Urine Nitrite NEGATIVE (NEGATIVE) Urine Bilirubin SMALL H (NEGATIVE) Urine Urobilinogen 0.2 (<2.0) EU/dL Ur Leukocyte Esterase NEGATIVE (NEGATIVE) Meds: Medications Generic Name Dose Route Start Last Admin Trade Name Freq PRN Reason Stop Dose Admin Sodium Chloride 10 ml 06/19/21 02:46 Sodium Chloride 0.9% 10 Ml Syringe FLUSH ASDIRECTED PRN Keep Vein Open Sodium Chloride 2.5 ml 06/19/21 02:46 Sodium Chloride 0.9% 2.5 Ml Syringe FLUSH ASDIRECTED PRN Keep Vein Open Discontinued Medications Generic Name Dose Route Start Last Admin Trade Name Magi PRN Reason Stop Dose Admin Sodium Chloride 1,000 mls @ 999 mls/hr 06/19/21 02:46 06/19/21 03:10 Normal Saline IV 06/19/21 03:46 999 mls/hr .Bolus ONE Administration Sodium Chloride 1,000 mls @ 999 mls/hr 06/19/21 03:37 06/19/21 03:46 Normal Saline IV 06/19/21 04:37 999 mls/hr .Bolus ONE Administration Ketorolac Tromethamine 15 mg 06/19/21 02:46 06/19/21 03:10 Ketorolac 15 Mg/Ml Sdv IVPUSH 06/19/21 02:47 15 mg ONETIME ONE Administration Ondansetron HCl 4 mg 06/19/21 02:46 06/19/21 03:10 Ondansetron 4 Mg/2 Ml Sdv IVPUSH 06/19/21 02:47 4 mg ONETIME ONE Administration Departure - Departure Time of Disposition: 05:25 Disposition: Home, Self-Care 01 Condition: Good Clinical Impression: Dehydration, Nausea, Left hip pain - Discharge Information Instructions: Nausea, Adult, Dehydration, Adult, [id number] Referrals: PCP,Not In Area [Primary Care Provider] - Forms: ED Department Discharge Additional Instructions: You were seen and evaluated in the ER today secondary to dehydration. You have been given IV fluids x2 L in the ER as well as Zofran to assist with your nausea. We will call out a prescription for Zofran for you to help you with your nausea over the next 1 to 2 days. Please make sure you drink plenty of fluids. Make an appointment see your family doctor in the next 2 to 3 days. Please return to the ER if you develop any new or worsening symptoms. The following information is given to patients seen in the emergency department who are being discharged to home. This information is to outline your options for follow-up care. We provide all patients seen in our emergency department with a follow-up referral. The need for follow-up, as well as the timing and circumstances, are variable depending upon the specifics of your emergency department visit. If you don't have a primary care physician on staff, we will provide you with a referral. We always advise you to contact your personal physician following an emergency department visit to inform them of the circumstance of the visit and for follow-up with them and/or the need for any referrals to a consulting specialist. The emergency department will also refer you to a specialist when appropriate. This referral assures that you have the opportunity for follow-up care with a specialist. All of these measure are taken in an effort to provide you with optimal care, which includes your follow-up. Under all circumstances we always encourage you to contact your private physician who remains a resource for coordinating your care. When calling for follow-up care, please make the office aware that this follow-up is from your recent emergency room visit. If for any reason you are refused follow-up, please contact the [facility] Emergency Department at and asked to speak to the emergency department charge nurse. [facility] - Primary Care [address] [place] [id number] [id number] Sepsis Event Note (ED) - Focused Exam Vital Signs: Vital Signs Temp Pulse Resp BP Pulse Ox 06/19/21 02:20 97.8 F 67 18 138/81 97 - My Orders Last 24 Hours: My Active Orders 06/19/21 02:46 EKG Documentation Completion [RC] AM Sodium Chloride 0.9% [Saline Flush] 10 ml FLUSH ASDIRECTED PRN Sodium Chloride 0.9% [Saline Flush] 2.5 ml FLUSH ASDIRECTED PRN Saline Lock Insert [OM.PC] Stat 06/19/21 05:00 UA W/MICROSCOPIC [URIN] Stat - Assessment/Plan Last 24 Hours: My Active Orders 06/19/21 02:46 EKG Documentation Completion [RC] AM Sodium Chloride 0.9% [Saline Flush] 10 ml FLUSH ASDIRECTED PRN Sodium Chloride 0.9% [Saline Flush] 2.5 ml FLUSH ASDIRECTED PRN Saline Lock Insert [OM.PC] Stat 06/19/21 05:00 UA W/MICROSCOPIC [URIN] Stat
[2021-06-19 10:32] VITALS: BP 126/69; PULSE 61
== END 2021-06-19 05:40 | disposition home or self-care (01) ==
LOC: MW.ED 02:09
DX: E86.0 Dehydration (principal); M25.552 Pain in left hip; R11.0 Nausea; E03.9 Hypothyroidism, unspecified; Z79.899 Other long term (current) drug therapy
CPT/HCPCS: 36415; 80053; 81001; 83690; 84484; 85025; 93005; 96374; 96375; 99284; J1885; J2405; J7030